=== PATIENT | male | born 1965 | race Caucasian/White ===

== ENCOUNTER 2020-01-08 11:12 | Emergency (ER) | payer OTHER ==
[2020-01-08 11:27] VITALS: BP 130/82; PULSE 68; RESP 18; TEMP 98
--- NOTE | 2020-01-08 11:50 | XR ---
EXAMINATION TYPE: XR finger LT DATE OF EXAM: 01/08/2020 COMPARISON: NONE HISTORY: Injury with pain. TECHNIQUE: 3 views left fifth finger are acquired. FINDINGS: [place] osseous structures are demineralized. There is acute minimally displaced comminuted fracture through the proximal to distal diaphysis of the fifth proximal phalanx with slight dorsal an d ulnar step off of the distal fracture fragment. Joint spaces are maintained. Mild to moderate assoc iated soft tissue swelling is seen. IMPRESSION: As above. Initial encounter closed type posttraumatic fracture.
[2020-01-08] MEDS ORDERED: ACET/COD 300 MG/30 MG STARTER PACK 6 TAB BTL PO STA (12:09)
--- NOTE | 2020-01-08 12:12 | ED ---
Upper Extremity HPI - General Chief Complaint: Extremity Injury, Upper Stated Complaint: Hand injury Time Seen by Provider: 01/08/20 11:28 Source: patient, RN notes reviewed Mode of arrival: ambulatory Limitations: no limitations - History of Present Illness Initial Comments: 54-year-old male present emergency from chief complaint of left hand index fin roselia pain. Patient states that he tripped, fell pain in his finger. Patient is bruising pain only evidence that there is no other injuries noted. - Related Data Previous Rx's Medication Instructions Recorded Ibuprofen [Motrin] 600 mg PO Q8HR PRN #20 tab 01/08/20 Allergies Allergy/AdvReac Type Severity Reaction Status Date / Time No Known Allergies Allergy Verified 01/08/20 11:27 Review of Systems ROS Statement: Those systems with pertinent positive or pertinent negative responses have been documented in the HPI. ROS Other: All systems not noted in ROS Statement are negative. Past Medical History Past Medical History: No Reported History, Hyperlipidemia History of Any Multi-Drug Resistant Organisms: None Reported Past Surgical History: No Surgical Hx Reported, Heart Catheterization With Stent Smoking Status: Current every day smoker Past Alcohol Use History: Occasional Past Drug Use History: None Reported General Exam Limitations: no limitations General appearance: alert, in no apparent distress Head exam: Present: atraumatic, normocephalic, normal inspection Respiratory exam: Present: normal lung sounds bilaterally. Absent: respiratory distress, wheezes, rales, rhonchi, stridor Cardiovascular Exam: Present: regular rate, normal rhythm, normal heart sounds. Absent: systolic murmur, diastolic murmur, rubs, gallop, clicks Extremities exam: Present: other (Left hand fifth digit there is some ecchymosis noted at the MCP region, proximal phalanx. Limited range of motion secondary to pain neurovascular intact no obvious deformity) Course Vital Signs 01/08/20 11:23 Temperature 98.0 F Pulse Rate 68 Respiratory 18 Rate Blood Pressure 130/82 O2 Sat by Pulse 98 Oximetry Medical Decision Making - Medical Decision Making X-ray shows evidence of fifth digit proximal phalanx fracture. Patient was placed in a finger splint and will follow-up. Return parameters were discussed. Disposition Clinical Impression: Fracture of proximal phalanx of left hand Disposition: HOME SELF-CARE Condition: Stable Instructions (If sedation given, give patient instructions): Finger Fracture (ED) Additional Instructions: Please return to the Emergency Department if symptoms worsen or any other concerns. Prescriptions: Ibuprofen [Motrin] 600 mg PO Q8HR PRN #20 tab PRN Reason: Pain Is patient prescribed a controlled substance at d/c from ED?: No Referrals: None,Stated [Primary Care Provider] - 1-2 days Time of Disposition: 12:12
== END 2020-01-08 12:20 | disposition home or self-care (01) ==
LOC: EC 11:12
DX: S62.617A Displaced fracture of proximal phalanx of left little finger, initial encounter for closed fracture (principal); F17.200 Nicotine dependence, unspecified, uncomplicated; Z95.1 Presence of aortocoronary bypass graft; W01.0XXA Fall on same level from slipping, tripping and stumbling without subsequent striking against object, initial encounter
CPT/HCPCS: 99283